=== PATIENT | female | born 1950 | race Caucasian/White ===

== ENCOUNTER → 2016-12-31 | Outpatient (CLI) | payer MEDICARE, BC ==
--- NOTE | 2016-12-31 12:51 | KCIC ---
Examination: CT chest without contrast HISTORY History of followup of normal CT chest for irregular opacity in the right lung base COMPARISON 09/02/2026. TECHNIQUE Axial CT images of the chest were performed without contrast. Coronal and sagittal reformats were performed. Exposure: One or more of the following dose reduction technique were utilized for this examination: 1. Automated exposure control. 2.Adjustment of MA and /or KV according to patient size. 3. Use of iterative reconstruction technique. Findings : The visualized thyroid gland grossly appears unremarkable central airways are patent. The heart size is normal. Coronary artery calcifications identified. No evidence of pericardial effusion. No radiologically significant mediastinal lymphadenopathy. The bilateral breast prosthesis again identified. Emphysematous changes identified in the bilateral upper lobes. 6 millimeter nodule and a 4 millimeter nodule identified in the right lower lobe of the lung are similar to prior exam. The linear opacity identified in the right lower lobe of the lung is slightly less prominent compared to prior exam. 4 millimeter nodule identified in the left lower lobe of the lung is similar to prior exam. No evidence of pleural effusion or pneumothorax identified. Faint tiny 2 millimeters nodular densities identified in the right lower lobe of the lung base visualized on series 2 image #32, are new compared to prior exam. The visualized non contrasted liver, spleen, adrenal grossly appears unremarkable. Mild degenerative changes thoracic spine. IMPRESSION - The previously visualized irregular linear opacity identified in the right lower lobe of the lung has decreased in size compared to prior exam. - Faint nodular tree-in-bud opacities in to the right upper lobe lung have completely resolved.Faint new 2 millimeter nodules identified in superior segment of the right lower lobe of the lung which are new compared to prior exam. Nonspecific. Followup examination is recommended document stability. - Scattered subcentimeter nodules identified in the right and left lobes of the lung are similar to prior exam. - Centrilobular emphysematous changes identified in the bilateral lungs. - Coronary artery calcifications. Electronically signed by: Maurisio Adam (Dec 31, 2016 12:49:56)
== END | disposition home or self-care (01) ==
LOC: KCIC CT 08:50
PROVIDERS: ATTEND Internal Medicine Pulmonary Disease
DX: R93.5 Abnormal findings on diagnostic imaging of other abdominal regions, including retroperitoneum (principal); M47.894 Other spondylosis, thoracic region
CPT/HCPCS: 71250

== ENCOUNTER → 2017-08-04 | Outpatient (CLI) | payer MEDICARE, BC | END | disposition home or self-care (01) | LOC: KCIC MAMMO 13:53 | PROVIDERS: ATTEND Family Medicine | DX: Z12.31 Encounter for screening mammogram for malignant neoplasm of breast (principal) | CPT/HCPCS: 77063; G0202; 77067 ==

== ENCOUNTER → 2017-12-23 | Outpatient (CLI) | payer MEDICARE, BC | END | disposition home or self-care (01) | LOC: CT 09:53 | DX: J43.9 Emphysema, unspecified (principal); I25.10 Atherosclerotic heart disease of native coronary artery without angina pectoris; R91.8 Other nonspecific abnormal finding of lung field | CPT/HCPCS: 71250 ==

== ENCOUNTER → 2018-06-26 | Outpatient (CLI) | payer MEDICARE, BC ==
--- NOTE | 2018-06-26 11:45 | RAD ---
Exam: CT chest without contrast CLINICAL HISTORY: LUNG NODULE lower COMPARISON: CT chest 12/23/2017, 12/21/2016 TECHNIQUE: CT of the chest without intravenous contrast. Axial, Coronal and sagittal reformatted images were generated. PQRS compliance Statement: One or more of the following individualized dose reduction techniques were utilized for this study: 1. Automated exposure control 2. Adjustment of the mA and/or kV according to patient size 3. Use of iterative reconstruction technique FINDINGS: Lack of intravenous contrast limits evaluation of solid organs, vasculature, and lymph nodes. The heart is not enlarged. Coronary artery calcifications are seen. No pericardial effusion. Calcified hilar lymph nodes are seen. No mediastinal or hilar lymphadenopathy by size criteria. No pleural effusion or pneumothorax. Bilateral breast implants are seen peripherally calcified. Bilateral emphysematous changes are seen. Right lower lobe pulmonary nodule (series 5, image 193) measures 5 mm, previously 5.5 mm, essentially stable accounting for differences in technique. A 3 mm right lower lobe lung nodule (series 5 image 226) is stable. A 6 mm right lower lobe lung nodule (series 5 image 180) is grossly stable previously measuring 5.5 mm. A 6 mm right lower lobe lung nodule measures 6 mm, previously 7 mm, stable accounting for differences in technique. No focal lobar consolidation. Visualized upper abdomen is grossly unremarkable. Bones: Multilevel degenerative changes of the spine are seen. No evidence of acute fracture. No suspicious osseous lesion is seen. IMPRESSION: Previously seen lung nodules are essentially stable in size accounting for differences in technique. Recommend continued follow-up to ensure stability. Electronically signed by: Dima Hewitt MD (06/26/2018 11:41 AM) [facility]
== END | disposition home or self-care (01) ==
LOC: CT 09:38
PROVIDERS: ATTEND Internal Medicine Pulmonary Disease
DX: R91.8 Other nonspecific abnormal finding of lung field (principal); J43.9 Emphysema, unspecified; I25.10 Atherosclerotic heart disease of native coronary artery without angina pectoris; Z87.891 Personal history of nicotine dependence
CPT/HCPCS: 71250

== ENCOUNTER → 2018-08-15 | Outpatient (CLI) | payer MEDICARE, BC ==
--- NOTE | 2018-08-15 12:58 | KCIC ---
Bilateral digital screening mammograms with 3-D tomosynthesis: Reason for examination: Routine screening. Comparison is made to previous studies dated 08/04/2017 and 04/22/2016. Bilateral mammograms in CC and oblique projections were obtained with 2-D imaging and 3-D tomosynthesis imaging on a Siemens Inspiration unit and reviewed on the workstation. Interpretation was made with the benefit of CAD. The skin and nipples show no abnormalities. No abnormal axillary lymph nodes are seen. Bilateral breast implants remain present. The breast parenchyma shows scattered fatty and fibroglandular density. (Breast density: Category B.) There are no dominant masses, suspicious calcifications or architectural distortion. Impression: No evidence of malignancy. Recommend routine screening. BI-RAD Category 1: Negative. "Our facility is accredited by the [employer] Mammography [employer]." This patient's information has been entered into a reminder system for the patient to be notified with the results of her examination and a target date for the next mammogram. Electronically signed by: Marah Alicia MD (08/15/2018 12:54 PM) [id number]
== END | disposition home or self-care (01) ==
LOC: KCIC MAMMO 10:33
PROVIDERS: ATTEND Family Medicine
DX: Z12.31 Encounter for screening mammogram for malignant neoplasm of breast (principal); J43.9 Emphysema, unspecified; I25.10 Atherosclerotic heart disease of native coronary artery without angina pectoris; Z87.891 Personal history of nicotine dependence
CPT/HCPCS: 77063; 77067

== ENCOUNTER → 2019-06-18 | Outpatient (CLI) | payer MEDICARE, BC ==
[2018-12-11 14:00] VITALS: BP 139/62
[~2019-06-18] MED LIST: HYDR-3164 PO
--- NOTE | 2019-06-18 09:35 | RAD ---
Examination: CT CHEST WO CONTRAST History: Lung nodules Comparison/Correlation: 12/31/2016 CT chest without contrast 06/26/2018 CT chest without contrast Findings: Axial images of chest were obtained without contrast. Sagittal and coronal reformatted images were provided. Bilateral breast implants are present. Significant calcification of the coronary arteries noted. Aberrant right subclavian artery is seen. Retroesophageal course noted. Extensive centrilobular emphysematous involvement of the lung yap noted. Several noncalcified pulmonary nodules are present within each lung. These are small in size mostly measuring less than 0.4 cm diameter and have remained unchanged. The largest nodule at the right lower lobe pulmonary measuring up to 0.55 cm diameter which has remained unchanged. It is currently seen on axial image 193 of series 3. Right lower lung field calcified granulomas are present. Bronchial wall thickening is noted involving the lower lobes compatible with chronic bronchitis. No pleural effusion or consolidation in the interval. No enlarged thoracic lymph nodes. Partially visualized upper abdomen is unremarkable. Bony structures are unremarkable. Impression: No new pulmonary nodules. No increase in size of previously present nodules. Considering stability since 12/31/2016 CT chest without contrast, benign etiologies are suspected. No new infiltrate. Centrilobular emphysema. PQRS Compliance Statement: One or more of the following individualized dose reduction techniques were utilized for this examination: 1. Automated exposure control 2. Adjustment of the mA and/or kV according to patient size 3. Use of iterative reconstruction technique Electronically signed by: Ziyad Farooq MD (06/18/2019 9:32 AM) [facility]
== END | disposition home or self-care (01) ==
LOC: CT 07:52
PROVIDERS: ATTEND Internal Medicine Pulmonary Disease
DX: J43.2 Centrilobular emphysema (principal); I25.10 Atherosclerotic heart disease of native coronary artery without angina pectoris; R91.8 Other nonspecific abnormal finding of lung field
CPT/HCPCS: 71250

== ENCOUNTER → 2019-08-20 | Outpatient (CLI) | payer MEDICARE, BC ==
[2018-12-11 14:00] VITALS: BP 139/62
--- NOTE | 2019-08-20 17:23 | KCIC ---
Bilateral digital screening mammograms with 3-D tomosynthesis: Reason for examination: Routine screening. Comparison is made to previous studies dated 08/15/2018 and 08/04/2017. Bilateral mammograms in CC and oblique projections were obtained with 2-D imaging and 3-D tomosynthesis imaging on a Siemens Inspiration unit and reviewed on the workstation. Interpretation was made with the benefit of CAD. The skin and nipples show no abnormalities. No abnormal axillary lymph nodes are seen. Bilateral breast implants remain present. There is capsular calcification present. The breast parenchyma shows scattered fatty and fibroglandular density. (Breast density: Category B.) There are no new dominant masses, suspicious calcifications or architectural distortion. Impression: No evidence of malignancy. Recommend routine screening. BI-RAD Category 2: Benign. "Our facility is accredited by the [employer] Mammography [employer]." This patient's information has been entered into a reminder system for the patient to be notified with the results of her examination and a target date for the next mammogram. Electronically signed by: Marah Alicia MD (08/20/2019 5:20 PM) [id number]
== END | disposition home or self-care (01) ==
LOC: KCIC MAMMO 10:41
PROVIDERS: ATTEND Family Medicine
DX: Z12.31 Encounter for screening mammogram for malignant neoplasm of breast (principal)
CPT/HCPCS: 77063; 77067

== ENCOUNTER → 2020-06-20 | Outpatient (CLI) | payer MEDICARE, BC ==
[2018-12-11 14:00] VITALS: BP 139/62
--- NOTE | 2020-06-20 14:06 | RAD ---
EXAM: CT Chest without IV contrast INDICATION: Reason: lung nodule / Spl. Instructions: / History: TECHNIQUE: Multi-detector row CT images were acquired from the thoracic inlet through the upper abdomen without the use of IV contrast. Sagittal and coronal images were acquired from the transaxial data. All CT scans performed at this facility utilize dose optimization techniques as appropriate to the exam, including the following: Automated exposure control and adjustment of the mA and/or KV according to patient size (this includes techniques or standardized protocols for targeted exams where dose is indication/reason for exam). COMPARISON: Noncontrast chest CT 06/18/2019 FINDINGS: The absence of IV contrast limits evaluation of soft tissue pathology. CARDIOVASCULAR: Aberrant right subclavian artery. Scattered arterial calcifications including coronary calcifications. Normal caliber thoracic aorta. Normal heart size. No pericardial effusion. MEDIASTINUM & KRISTI: Calcified right hilar lymph nodes. No mediastinal adenopathy or mass on noncontrast CT demonstrated. LUNGS: Stable 5.5 mm right lower lobe pulmonary nodule (image 184 of axial series 8). A 6 mm lobulated nodule in the posterior right lower lobe (axial image 172 of series 8) at the junction between the posterior and superior segments is also unchanged. Additional smaller, less than 5 mm pulmonary nodules are redemonstrated, some calcified. PLEURAL SPACE: No pleural effusions or pneumothorax. OSSEOUS & SOFT TISSUE: No acute or aggressive appearing osseous lesions. Bilateral retroglandular breast implants. ABDOMEN: The visualized portions of the upper abdomen are unremarkable. IMPRESSION: Multiple pulmonary nodules as described, overall similar in size from the previous year. No new nodules identified. In the setting of underlying centrilobular emphysema, continued surveillance could be beneficial. Electronically signed by: Nicole Holcomb MD (06/20/2020 2:03 PM) [id number]
== END ==
LOC: CT 13:14
PROVIDERS: ATTEND Internal Medicine Pulmonary Disease
DX: R91.8 Other nonspecific abnormal finding of lung field (principal); J43.2 Centrilobular emphysema
CPT/HCPCS: 71250

== ENCOUNTER → 2021-06-19 | Outpatient (CLI) | payer MEDICARE, BC ==
[2018-12-11 14:00] VITALS: BP 139/62
--- NOTE | 2021-06-19 12:12 | RAD ---
Noncontrast CT scan of the chest compared to similar exam dated June 202023 significant tobacco exposure, history of pulmonary nodules in centrilobular emphysema. TECHNIQUE: Contiguous axial CT images are obtained through the chest. Sagittal and coronal reformatio ns are evaluated. FINDINGS: Centrilobular emphysema, grossly stable. Small stable area of bronchiectasis in the posteri or aspect of the superior segment of the right lower lobe. Several small bilateral pulmonary nodules are all stable, consistent with benignity. No new or suspicious lung nodules are identified. There is calcified right hilar adenopathy. Coronary artery calcifications are seen in multiple distributions. No suspicious mediastinal, hilar, or axillary lymphadenopathy. Calcified breast implants. No gross a bnormalities of the visualized upper abdominal organs. Aortic vascular calcifications. No suspicious osteoblastic or osteolytic bone lesions. IMPRESSION: 1. Centrilobular emphysema, stable. 2. Multiple stable subcentimeter bilateral pulmonary nodules, benign. No new or suspicious pulmonary nodules are identified. 3. Other chronic changes as described. PQRS Compliance Statement: One or more of the following individualized dose reduction techniques were utilized for this examinat ion: 1. Automated exposure control 2. Adjustment of the mA and/or kV according to patient size 3. Use of iterative reconstruction technique Electronically signed by: Nelson Suh MD (06/19/2021 12:10 PM) [id number]
== END ==
LOC: CT 10:17
PROVIDERS: ATTEND Internal Medicine Pulmonary Disease
DX: J43.2 Centrilobular emphysema (principal); R91.8 Other nonspecific abnormal finding of lung field; J47.9 Bronchiectasis, uncomplicated; Z77.22 Contact with and (suspected) exposure to environmental tobacco smoke (acute) (chronic); R59.0 Localized enlarged lymph nodes; I25.10 Atherosclerotic heart disease of native coronary artery without angina pectoris; I70.0 Atherosclerosis of aorta
CPT/HCPCS: 71250

== ENCOUNTER → 2022-01-18 | Outpatient (CLI) | payer MEDICARE, BC ==
[2018-12-11 14:00] VITALS: BP 139/62
--- NOTE | 2022-01-18 12:39 | KCIC ---
Bilateral digital screening mammograms with 3-D tomosynthesis: Reason for examination: Routine screening. Comparison is made to previous studies dated back to 04/22/2016. Bilateral mammograms in CC and oblique projections were obtained with 2-D imaging and 3-D tomosynthes is imaging on a Siemens Inspiration unit and reviewed on the workstation. Interpretation was made wit h the benefit of CAD. The skin and nipples show no abnormalities. No abnormal axillary lymph nodes are seen. Bilateral reese st implants remain present with some capsular calcification evident. The breast parenchyma shows scat tered fatty and fibroglandular density. (Breast density: Category B.) There are no dominant masses, s uspicious calcifications or architectural distortion. A few benign calcifications are present. Impression: No evidence of malignancy. Recommend routine screening. BI-RAD Category 2: Benign. "Our facility is accredited by the [employer] Mammography Program." This patient's information has been entered into a reminder system for the patient to be notified wit h the results of her examination and a target date for the next mammogram. Electronically signed by: Marah Alicia MD (01/18/2022 12:36 PM) [id number]
== END ==
LOC: KCIC MAMMO 09:52
PROVIDERS: ATTEND Family Medicine
DX: Z12.31 Encounter for screening mammogram for malignant neoplasm of breast (principal)
CPT/HCPCS: 77063; 77067